=== PATIENT | male | born 1980 | race Caucasian/White ===

== ENCOUNTER 2017-12-19 17:55 | Emergency (ER) | payer OTHER ==
[~2017-12-19] VITALS: Ht 181.6 cm; Wt 93.0 kg
[2017-12-19 18:07] VITALS: BP 142/74
[2017-12-19] MEDS ORDERED: BACTRIM DS TAB1 EACH PO (18:14)
--- NOTE | 2017-12-19 18:14 | ED ANIMAL BITE/WOUND CHECK ---
History of Present Illness General Chief Complaint: General Adult Stated Complaint: WOUND CHECK Source: patient Exam Limitations: no limitations Vital Signs & Intake/Output Vital Signs & Intake/Output Vital Signs Date Time Temp Pulse Resp B/P B/P Pulse O2 O2 Flow FiO2 Mean Ox Delivery Rate 12/19 1807 97.1 70 16 142/74 97 Room Air Allergies Coded Allergies: No Known Allergies (12/17/17) Reconcile Medications Sulfamethoxazole/Trimethoprim (Bactrim Ds Tablet) 800 MG-160 MG TABLET 1 TAB PO BID ABSCESS Triage Note: PT HERE FOR WOUND CHECK TO R [place], STATES THAT HE HAD ABCESS DRAINED A FEW DAYS AGO Triage Nurses Notes Reviewed? yes Onset: Abrupt Duration: day(s): (3), better, continues in ED Timing: single episode today Injury Environment: home Is Injury an Animal Bite? No HPI: 37-year-old male with no medical history presents for evaluation of a wound check. Patient was seen here 2 days ago and had an incision and drainage of an abscess to his right forearm. Patient has been taking Bactrim. He reports that the abscess has been healing well the swelling and redness has gone down significant the since drainage. He denies any fevers or difficulty with range of motion. He states he has no pain in the area anymore. (Syed Barraza) Past History Travel History Traveled to [place] past 21 day No Medical History Any Pertinent Medical History? see below for history Neurological: NONE EENT: NONE Cardiovascular: NONE Respiratory: NONE Gastrointestinal: NONE Hepatic: NONE Renal: NONE Musculoskeletal: NONE Psychiatric: NONE Endocrine: NONE Surgical History Surgical History: non-contributory Psychosocial History What is your primary language [place] Citizen Tobacco Use: Never used ETOH Use: denies use Illicit Drug Use: denies illicit drug use Family History Hx Contributory? No (Syed Barraza) Review of Systems Review of Systems Constitutional: Reports: no symptoms. EENTM: Reports: no symptoms. Respiratory: Reports: no symptoms. Cardiovascular: Reports: no symptoms. GI: Reports: no symptoms. Genitourinary: Reports: no symptoms. Musculoskeletal: Reports: no symptoms. Skin: Reports: see HPI (ABSCESS). Neurological/Psychological: Reports: no symptoms. Hematologic/Endocrine: Reports: no symptoms. Immunologic/Allergic: Reports: no symptoms. All Other Systems: Reviewed and Negative (Syed Barraza) Physical Exam Physical Exam General Appearance: well developed/nourished, no apparent distress, alert, awake Head: atraumatic, normal appearance Eyes: Bilateral: normal appearance, EOMI. Ears, Nose, Throat: hearing grossly normal Neck: normal inspection, supple, full range of motion Respiratory: no respiratory distress Peripheral Pulses: 2+ radial (R), 2+ radial (L) Back: normal inspection, normal range of motion Extremities: THERE IS A HEALING ABSCESS WITH PACKING ON PLACE TO THE POSTERIOR PROXIMAL RT FOREARM. THERE IS ABOUT 1,5CM IF SOURROUNDING ERYTHEMA AND INDURATION. THE ERYTHEMA HAS RECEDED FROM THE MARKED LOCTAED ON THE DAY OF DRAINAGE. NO LYMPHATIC STREAKING. FULL ROM INTACT, N/V SUPPLY INTACT Neurologic/Psych: no motor/sensory deficits, awake, alert, oriented x 3, normal gait, normal mood/affect Skin: intact, normal color, warm/dry (Syed Barraza) Progress Differential Diagnosis: abscess, cellulitis, joint infection, tenosysnovitis Plan of Care: Patient is here for an abscess recheck. On exam the abscess appears to be healing well. The erythema has receded. Packing was removed and was not replaced since the abscess pocket is open. No additional drainage no lymphatic streaking. Full range of motion intact neurovascular supply intact patient is afebrile. A new sterile dressing was applied. Discussed wound care procedures warm soaks continue antibiotics for the full course culture is still pending. AdviseD returning in another 3 days for another wound check return sooner with any concerns discussed return precautions patient agrees with the plan (Syed Barraza) Departure Departure Disposition: HOME OR SELF CARE Condition: Stable Clinical Impression Primary Impression: Encounter for recheck of abscess following incision and drainage Referrals: Patient Has No Primary Care Dr (PCP/Family) Additional Instructions: Continue antibiotics for the full course including extension of antibiotics. Tylenol ibuprofen for pain change dressing once daily do warm compresses. Return in another 3 days for a wound check return sooner with spreading redness worsening swelling or worsening pain. Departure Forms: Customer Survey General Discharge Information Prescriptions: Current Visit Scripts Sulfamethoxazole/Trimethoprim (Bactrim Ds Tablet) 1 TAB PO BID #8 TAB (Syed Barraza) PA/SUPERVIS[employer] Co-Sign Statement Statement: ED Attending supervision documentation- [] I saw and evaluated the patient. I have also reviewed all the pertinent lab results and diagnostic results. I agree with the findings and the plan of care as documented in the PA's/SUPERVISOR [employer]RA[employer]'s documentation. [x] I have reviewed the ED Record and agree with the PA's/SUPERVISOR [employer]RA[employer]'s documentation. [] Additions or exceptions (if any) to the PAs/SUPERVISOR [employer]RA[employer]'s note and plan are summarized below: [] (Flor MENJIVAR, Quinn)
== END 2017-12-19 18:19 ==
LOC: ERH 17:55
DX: L02.413 Cutaneous abscess of right upper limb (principal)